=== PATIENT | male | born 1955 ===

== ENCOUNTER 2016-04-19 09:27 | Inpatient (IN) | payer MEDICARE ==
[~2016-04-19] VITALS: Ht 175.3 cm; Wt 58.4 kg
[~2016-04-19 09:27] MED LIST: DIOV40TA PO; GLUC10TA3 PO; METF-324 PO; MIRA0.5T PO; PLAV75TA PO; ZOCO80TA PO
[2016-04-19 09:28] VITALS: BP 134/79; PULSE 78; RESP 15; TEMP 97.6; O2SAT 97
[2016-04-19 10:31] VITALS: RESP 18; O2SAT 100
[2016-04-19] MEDS ORDERED: PIPERACIL-TAZO 4.5 GM PREMIX 100 ML IV STA (10:33)
[2016-04-19] MEDS ORDERED: VANCOMYCIN INJ 1,000 MG in SODIUM CHLOR 0.9% 250 ML INJ 250 ML IV STA (10:33)
--- NOTE | 2016-04-19 10:42 | PD ---
HPI Chief Complaint: Skin Problem Time Seen by Provider: 10:33 Travel History International Travel<30 days: No Contact w/Intl Traveler<30days: No Traveled to known affect area: No History of Present Illness HPI 61-year-old male with history of diabetes, noncompliant with diabetic meds, presents to the ER today for increased right foot pain, swelling at the ulcer, and redness going up his right leg. According to patient's , patient has had months history of foot ulcer on the right foot laterally and it started draining fluids and getting more red and tender over the last few weeks, redness streaking up the leg for the past 2 weeks, and he has had some fevers or last few days. He denies any abdominal pains, chest pains, shortness of breath, or any other symptoms. Modifying Factors: None Associated Signs & Symptoms: 7 out of 10 right foot pain, redness, streaking and swelling Risk Factors: Diabetic PFSH Past Medical History Arthritis: Yes Blood Disorders: No Heart Rhythm Problems: No Cancer: No Cardiovascular Problems: Yes High Cholesterol: Yes Chemotherapy: No Chest Pain: Yes Congestive Heart Failure: No Cerebrovascular Accident: Yes Coronary Artery Disease: Yes Diabetes: Yes Patient Takes Glucophage: No Diminished Hearing: No Endocrine: Yes Gastrointestinal Disorders: Yes GERD: No Glaucoma: No Genitourinary: Yes Headaches: Yes Hepatitis: No Hiatal Hernia: No Hypertension: Yes Immune Disorder: No Kidney Stones: Yes Musculoskeletal: Yes Neurologic: Yes Psychiatric: No Reproductive: No Respiratory: No Immunizations Current: No Migraines: No Myocardial Infarction: Yes Radiation Therapy: No Renal Failure: Yes Seizures: No Thyroid Disease: No Ulcer: No Past Surgical History Abdominal Surgery: No AICD: No Appendectomy: No Arteriovenous Shunt: No Cardiac Surgery: Yes (OPEN HEART SURGERY SEVERAL YEARS AGO) Cholecystectomy: No Coronary Artery Bypass Graft: Yes Ear Surgery: No Endocrine Surgery: No Eye Surgery: No Genitourinary Surgery: Yes ( 3 KIDNEY SURGERIES WITH R PARTIAL NE[PHORECTOMY L KIDNEY STONE) Gynecologic Surgery: No Insulin Pump: No Joint Replacement: No Oral Surgery: No Pacemaker: No Thoracic Surgery: Yes (R LUNG REMOVED) Other Surgery: Yes (3 BACK SURGERIES) Social History Alcohol Use: No Tobacco Use: Yes (3 CIG/DAY) Substance Use: Yes (THC daily, ) Allergies-Medications (Allergen,Severity, Reaction): Coded Allergies: No Known Allergies (Verified , 2/24/17) Reported Meds & Prescriptions Reported Meds & Active Scripts Active Reported Plavix (Clopidogrel Bisulfate) 75 Mg Tab 75 Mg PO DAILY Zocor (Simvastatin) 80 Mg Tab 80 Mg PO HS Mirapex (Pramipexole Dihydrochloride) 0.5 Mg Tab 0.5 Mg PO HS Metformin HCl ER (Metformin HCl) 1,000 Mg Tab 1,000 Mg PO BID Glipizide 10 Mg Tab 20 Mg PO BID Diovan (Valsartan) 40 Mg Tab 40 Mg PO DAILY Review of Systems Except as stated in HPI: all other systems reviewed are Neg Physical Exam Narrative GENERAL: Well-nourished, well-developed elderly white male patient in no acute distress. SKIN: Warm and dry. HEAD: Normocephalic. EYES: No scleral icterus. No injection or drainage. NECK: Supple, trachea midline. CARDIOVASCULAR: Regular rate and rhythm without murmurs, gallops, or rubs. RESPIRATORY: Breath sounds equal bilaterally. No accessory muscle use. GASTROINTESTINAL: Abdomen soft, non-tender, nondistended. MUSCULOSKELETAL: No cyanosis, or edema. BACK: Nontender without obvious deformity. No CVA tenderness. EXTREMITIES: No clubbing, cyanosis, or edema. No joint tenderness, effusion, or edema noted. There is a right lateral foot dark discolored diabetic foot ulcer with surrounding erythema, fluctuant, questionable underlying infection. There is notable erythema and streaking up the foot as well as up the calf. Neurovascularly intact. Data Data Last Documented VS Vital Signs Date Time Temp Pulse Resp B/P Pulse Ox O2 Delivery O2 Flow Rate FiO2 04/19/16 10:31 100 Room Air 04/19/16 10:31 83 18 04/19/16 09:28 97.6 134/79 Orders Complete Blood Count With Diff (04/19/16 10:26) Comprehensive Metabolic Panel (04/19/16 10:26) Lactic Acid Sepsis Protocol (04/19/16 10:26) Blood Culture (04/19/16 10:26) Blood Glucose (04/19/16 10:26) Ecg Monitoring (04/19/16 10:26) Iv Access Insert/Monitor (04/19/16 10:26) Oximetry (04/19/16 10:26) Oxygen Administration (04/19/16 10:26) Piperacil-Tazo 4.5 Gm Premix (Zosyn 4.5 (04/19/16 10:33) Vancomycin Inj (Vancomycin Inj) (04/19/16 10:33) Foot, Complete (Eum2uue) (04/19/16 10:33) Hydromorphone Pf Inj (Dilaudid Pf Inj) (04/19/16 10:45) Ondansetron Inj (Zofran Inj) (04/19/16 10:45) Sodium Chlor 0.9% 1000 Ml Inj (Ns 1000 M (04/19/16 10:45) Insulin Human Regular Inj (Novolin R Inj (04/19/16 12:45) Admit Order (Ed Use Only) (04/19/16 12:40) Labs Laboratory Tests Test 04/19/16 10:45 White Blood Count 12.6 TH/MM3 Red Blood Count 4.62 MIL/MM3 Hemoglobin 13.3 GM/DL Hematocrit 40.3 % Mean Corpuscular Volume 87.3 FL Mean Corpuscular Hemoglobin 28.9 PG Mean Corpuscular Hemoglobin 33.1 % Concent Red Cell Distribution Width 13.5 % Platelet Count 239 TH/MM3 Mean Platelet Volume 11.1 FL Neutrophils (%) (Auto) 75.1 % Lymphocytes (%) (Auto) 17.0 % Monocytes (%) (Auto) 7.1 % Eosinophils (%) (Auto) 0.4 % Basophils (%) (Auto) 0.4 % Neutrophils # (Auto) 9.4 TH/MM3 Lymphocytes # (Auto) 2.1 TH/MM3 Monocytes # (Auto) 0.9 TH/MM3 Eosinophils # (Auto) 0.1 TH/MM3 Basophils # (Auto) 0.1 TH/MM3 CBC Comment DIFF FINAL Differential Comment Sodium Level 134 MEQ/L Potassium Level 4.4 MEQ/L Chloride Level 95 MEQ/L Carbon Dioxide Level 29.3 MEQ/L Anion Gap 10 MEQ/L Blood Urea Nitrogen 11 MG/DL Creatinine 0.88 MG/DL Estimat Glomerular Filtration 88 ML/MIN Rate Random Glucose 540 MG/DL Lactic Acid Level 2.2 mmol/L Calcium Level 8.9 MG/DL Total Bilirubin 0.4 MG/DL Aspartate Amino Transf 17 U/L (AST/SGOT) Alanine Aminotransferase 22 U/L (ALT/SGPT) Alkaline Phosphatase 113 U/L Total Protein 7.8 GM/DL Albumin 3.4 GM/DL MDM Medical Decision Making Medical Screen Exam Complete: Yes Emergency Medical Condition: Yes Medical Record Reviewed: Yes Interpretation(s) Laboratory Tests Test 04/19/16 10:45 White Blood Count 12.6 TH/MM3 (4.0-11.0) Mean Platelet Volume 11.1 FL (7.0-11.0) Neutrophils (%) (Auto) 75.1 % (16.0-70.0) Neutrophils # (Auto) 9.4 TH/MM3 (1.8-7.7) Sodium Level 134 MEQ/L (136-145) Chloride Level 95 MEQ/L (98-107) Estimat Glomerular Filtration 88 ML/MIN (>89) Rate Random Glucose 540 MG/DL (74-106) Lactic Acid Level 2.2 mmol/L (0.4-2.0) Differential Diagnosis Diabetic foot ulcer, cellulitis, rule out osteomyelitis, rule out sepsis Narrative Course X-ray did not show any signs of osteomyelitis. Patient was given IV antibiotics after cultures are drawn for obvious cellulitis. His glucose is elevated as well and IV fluids and insulin had been given. At this point, case was discussed with Dr. Chen for admission. Diagnosis Primary Impression: Diabetic foot ulcer Additional Impression: Sepsis affecting skin Admitting Information Admitting Physician Requests: Admit Vinod Stuart MD Apr 19, 2016 10:42
[2016-04-19] MEDS ORDERED: HYDROmorphone HCL PF 1 MG/ML VIAL IV PUSH ONE ×2 (10:45→13:00)
[2016-04-19] MEDS ORDERED: ONDANSETRON HCL 4 MG/2 ML VIAL IV PUSH ONE (10:45)
[2016-04-19] MEDS ORDERED: SODIUM CHLOR 0.9% 1000 ML INJ 1,000 ML IV ONE (10:45)
[2016-04-19 11:01] LABS: AUTOMATED NEUTROPHIL # 9.4 TH/MM3 (1.8-7.7); BASOPHIL # 0.1 TH/MM3 (0-0.2); BASOPHIL % 0.4 % (0.0-2.0); EOSINOPHIL # 0.1 TH/MM3 (0-0.4); EOSINOPHIL % 0.4 % (0.0-4.0); HEMATOCRIT 40.3 % (39.0-51.0); HEMO FLAGS DIFF FINAL; LYMPHOCYTE # 2.1 TH/MM3 (1.0-4.8); MEAN CELL VOLUME 87.3 FL (80.0-100.0); MEAN CORPUSCULAR HEMOGLOBIN 28.9 PG (27.0-34.0); MEAN CORPUSCULAR HGB CONC 33.1 % (32.0-36.0); MONO % 7.1 % (0.0-8.0); NEUT % 75.1 % (16.0-70.0); PLATELET COUNT 239 TH/MM3 (150-450); RED BLOOD COUNT 4.62 MIL/MM3 (4.50-5.90); RED CELL DISTRIBUTION WIDTH 13.5 % (11.6-17.2); WHITE BLOOD COUNT 12.6 TH/MM3 (4.0-11.0)
--- NOTE | 2016-04-19 11:31 | RADRPT ---
EXAM DATE/TIME: 04/19/2016 10:56 [facility] COMPARISON: No previous studies available for comparison. INDICATION: Right foot pain due to wound on lateral side. No known injury. Evaluate for infection. MEDICAL HISTORY: Diabetes mellitus type II. SURGICAL HISTORY: Multiple surgeries per patient. ENCOUNTER: Initial ACUITY: 4 - 6 months PAIN SCORE: 9/10 LOCATION: Right lateral foot FINDINGS: There are degenerative changes across the forefoot. There is a soft tissue defect on the lateral kunal e of the foot without evidence for osteomyelitis. CONCLUSION: 1. Soft tissue defect lateral side of the foot. 2. Negative for osteomyelitis. Angel Carvajal MD FACR on April 19, 2016 at 11:08 Board Certified Radiologist. This report was verified electronically.
[2016-04-19 11:51] LABS: ALKALINE PHOSPHATASE 113 U/L (45-117); ALT (GPT) 22 U/L (12-78); ANION GAP 10 MEQ/L (5-15); AST (GOT) 17 U/L (15-37); BICARBONATE 29.3 MEQ/L (21.0-32.0); BLOOD UREA NITROGEN 11 MG/DL (7-18); CHLORIDE 95 MEQ/L (98-107); GLOMERULAR FILTRATION RATE 88 ML/MIN (>89); SODIUM (NA) 134 MEQ/L (136-145); TOTAL BILIRUBIN ADULT 0.4 MG/DL (0.2-1.0)
[2016-04-19 11:54] LABS: POTASSIUM 4.4 MEQ/L (3.5-5.1)
[2016-04-19] MEDS ORDERED: INSULIN HUMAN REGULAR 1,000 UNITS/10 ML VIAL IV PUSH ONE (12:45)
[2016-04-19 12:49] LABS: LACTIC ACID GHOST NOT REPORTABLE
[2016-04-19 12:53] VITALS: BP 131/70; PULSE 63; RESP 18; O2SAT 98
[2016-04-19] MEDS: SODIUM CHLOR 0.9% 1000 ML INJ 1,000 ML IV SCH (13:43)
[2016-04-19] MEDS ORDERED: BISACODYL 10 MG SUPP PR PRN (13:45)
[2016-04-19] MEDS ORDERED: GLUCAGON 1 MG/ML VIAL OTHER PRN (13:45)
[2016-04-19] MEDS ORDERED: ONDANSETRON HCL 4 MG/2 ML VIAL IVP PRN (13:45)
[2016-04-19] MEDS ORDERED: SODIUM CHLORIDE 0.9% FLUSH 5 ML FLUSH FLUSH PRN (13:45)
[2016-04-19] MEDS ORDERED: MAGNESIUM HYDROXIDE SUSP 30 ML CUP PO PRN (13:45)
[2016-04-19] MEDS ORDERED: PROCHLORPERAZINE 25 MG SUPP PR PRN (13:45)
[2016-04-19] MEDS ORDERED: DEXTROSE 50% IN WATER 50 ML VIAL(D50) IV PUSH PRN (13:45)
[2016-04-19] MEDS ORDERED: SENNOSIDES 8.6 MG TAB PO PRN (13:45)
[2016-04-19] MEDS ORDERED: ACETAMINOPHEN 325 MG TAB PO PRN (13:45)
[2016-04-19] MEDS ORDERED: VANCOMYCIN INJ 1,000 MG in SODIUM CHLOR 0.9% 250 ML INJ 250 ML IV SCH (14:00)
[2016-04-19] MEDS ORDERED: Vancomycin Consult Pharmacy 1 EA OTHER SCH (14:00)
[2016-04-19] MEDS: ENOXAPARIN SODIUM 40 MG/0.4 ML SYRINGE SQ SCH (15:00)
--- NOTE | 2016-04-19 15:28 | HHI.HP ---
[facility] Service [facility] Primary Care Physician Non-Staff Admission Diagnosis diabetic foot ulcer/cellulitis/sepsis Diagnoses: Chief Complaint: diabetic right foot wound getting worse more red, painful Travel History International Travel<30 Days: No Contact w/Intl Traveler <30 Da: No Traveled to Known Affected Are: No History of Present Illness 61-year-old male with history of diabetes, CAD with CAGB 2003, CVA, HLD noncompliant with any meds says he is taking only ASA 81 mg and he is not taking any other med for the past 4 years. Says he is following regularly with doctors at [facility]. He presented to the ER today for increased right foot pain, swelling at the ulcer, and redness going up his right leg x 7 days worsening for the past 2-3 days. Patient had an ulcer at the right side x > 3 months and says he has another ulcer for 1 week. According to patient's , patient has had months history of foot ulcer on the right foot laterally and it started draining fluids and getting more red and tender over the last few weeks, redness streaking up the leg for the past 2 weeks, and he has had some fevers or last few days. He denies any abdominal pains, chest pains, shortness of breath, or any other symptoms. Had chills yesterday. No fever. He is also reporting anxiety. 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 Past Surgical History quadruple bypass 2003 History back surgeries multiple -3 Right leg surgery and right hip surgery Reported Medications Reported Meds & Active Scripts Active No Active Prescriptions or Reported Medications Allergies: Coded Allergies: No Known Allergies (Verified , 04/19/16) Family History Parents with heart problems, hyperlipidemia, diabetes and hypertension Social History Used to smoke 2 packs an half, cut down to 5-7 cigarettes since 2003 after CABG Denies alcohol use or illicit drug Physical Exam Vital Signs Vital Signs Date Time Temp Pulse Resp B/P Pulse Ox O2 Delivery O2 Flow Rate FiO2 04/19/16 12:53 63 18 131/70 98 Room Air 04/19/16 10:31 100 Room Air 04/19/16 10:31 83 18 04/19/16 10:31 18 100 Room Air 04/19/16 09:28 97.6 78 15 134/79 97 Physical Exam GENERAL: This is a frail 61 yo male, well-nourished, well-developed patient, in no apparent distress. SKIN: Right foot with 2 ulcers laterally, edema , and erythema going up his right leg with streak like cord. HEAD: Atraumatic. Normocephalic. No temporal or scalp tenderness. EYES: Pupils equal round and reactive. Extraocular motions intact. No scleral icterus. No injection or drainage. ENT: Nose without bleeding, purulent drainage or septal hematoma. Throat without erythema, tonsillar hypertrophy or exudate. Uvula midline. Airway patent. NECK: Trachea midline. No JVD or lymphadenopathy. Supple, nontender, no meningeal signs. CARDIOVASCULAR: Regular rate and rhythm without murmurs, gallops, or rubs. RESPIRATORY: Clear to auscultation. Breath sounds equal bilaterally. No wheezes , rales, or rhonchi. GASTROINTESTINAL: Abdomen soft, non-tender, nondistended. No hepato-splenomegaly , or palpable masses. No guarding. MUSCULOSKELETAL: Right leg is shorter than left leg had multiple surgeries and has extensive hardware. Extremities without clubbing, cyanosis, or edema. No joint tenderness, effusion, or edema noted. No calf tenderness. Negative Homans sign bilaterally. NEUROLOGICAL: Awake and alert. Cranial nerves II through XII intact. Motor and sensory grossly within normal limits. Five out of 5 muscle strength in all muscle groups. Normal speech. Laboratory Laboratory Tests Test 04/19/16 04/19/16 10:45 13:47 White Blood Count 12.6 Red Blood Count 4.62 Hemoglobin 13.3 Hematocrit 40.3 Mean Corpuscular Volume 87.3 Mean Corpuscular Hemoglobin 28.9 Mean Corpuscular Hemoglobin 33.1 Concent Red Cell Distribution Width 13.5 Platelet Count 239 Mean Platelet Volume 11.1 Neutrophils (%) (Auto) 75.1 Lymphocytes (%) (Auto) 17.0 Monocytes (%) (Auto) 7.1 Eosinophils (%) (Auto) 0.4 Basophils (%) (Auto) 0.4 Neutrophils # (Auto) 9.4 Lymphocytes # (Auto) 2.1 Monocytes # (Auto) 0.9 Eosinophils # (Auto) 0.1 Basophils # (Auto) 0.1 CBC Comment DIFF FINAL Differential Comment Sodium Level 134 Potassium Level 4.4 Chloride Level 95 Carbon Dioxide Level 29.3 Anion Gap 10 Blood Urea Nitrogen 11 Creatinine 0.88 Estimat Glomerular Filtration 88 Rate Random Glucose 540 Lactic Acid Level 2.2 2.5 Calcium Level 8.9 Total Bilirubin 0.4 Aspartate Amino Transf 17 (AST/SGOT) Alanine Aminotransferase 22 (ALT/SGPT) Alkaline Phosphatase 113 Total Protein 7.8 Albumin 3.4 Date/Time Procedure Status Source Growth 04/19/16 10:45 Aerobic Blood Culture Received Blood Peripheral Pending 04/19/16 10:45 Anaerobic Blood Culture Received Blood Peripheral Pending Result Diagram: 04/19/16 1045 04/19/16 1045 Imaging Last Impressions Foot X-Ray 04/19/16 1033 Signed Impressions: Service Date/Time: Tuesday, April 19, 2016 10:56 - CONCLUSION: 1. Soft tissue defect lateral side of the foot. 2. Negative for osteomyelitis. 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 Patient came for evaluation of right foot infected diabetic wound. Right leg diabetic wound. Patient with leukocytosis and lactic acid elevated on admission. Doesn't meet sepsis criteria. Check lactic acid per protocol IVF Wound cx ordered and pending. Blood cx pending Start IV abx Vanco and zosyn Consult podiatry. Patient likely needs vasc surgeon for evaluation DM2 likely uncontrolled on admission his glucose of 500s. Check A1c. Received bolus insulin. Monitor BS. Start ISS, accuchecks. CAD s/p CABG 2--4. Patient is refusing any meds says she is not taking any meds for the past 4 years. Adviced continue BB, ACEI, ASA , statin HLD. Adviced continue statin. Check lipid panel. DVT ppx with lovenox Code Status full Discussed Condition With patient, nurse, family at bedside, ED physician Physician Certification 2 Midnight Certification Type: Admission for Inpatient Services Order for Inpatient Services The services are ordered in accordance with Medicare regulations or non- Medicare payer requirements, as applicable. In the case of services not specified as inpatient-only, they are appropriately provided as inpatient services in accordance with the 2-midnight benchmark. Estimated LOS (days): 3 days is the estimated time the patient will need to remain in the hospital, assuming treatment plan goals are met and no additional complications. Post-Hospital Plan: Not yet determined Sallie Chen MD Apr 19, 2016 15:27
[2016-04-19] MEDS ORDERED: NALOXONE HCL 0.4 MG/ML AMP IV PRN (15:30)
[2016-04-19 15:49] VITALS: BP 134/65; PULSE 63; RESP 18; O2SAT 98
[2016-04-19] MEDS ORDERED: LORazepam 0.5 MG TAB PO PRN (16:00)
[2016-04-19] MEDS ORDERED: oxyCODONE/ACETAMINOPHEN 5 MG/325 MG TAB PO PRN (16:00)
[2016-04-19 16:02] LABS: HEMOGLOBIN A1a 1.4 %; HEMOGLOBIN A1b 1.6 %; HEMOGLOBIN Ao 68.9 %; HEMOGLOBIN F 2.6 %; HEMOGLOBIN LA1C 5.1 %; HEMOGLOBIN P3 6.4 %
[2016-04-19 16:57] VITALS: BP 121/59; PULSE 66; RESP 18; O2SAT 100
[2016-04-19] MEDS: HYDROmorphone HCL PF 1 MG/ML VIAL IV PRN ×2 (17:00→20:12)
[2016-04-19] MEDS: INSULIN ASPART SUPPLEMENTAL SCALE SQ SCH ×2 (17:01→20:12)
[2016-04-19] MEDS: PIPERACIL-TAZO 4.5 GM PREMIX 100 ML IV SCH ×2 (17:01→22:32)
[2016-04-19 17:44] LABS: HDL CHOLESTEROL 61.2 MG/DL (40.0-60.0)
[2016-04-19] MEDS ORDERED: GADODIAMIDE PF 287 MG/ML 20 ML VIAL (for RAD MRI) IV ONE (19:15)
--- NOTE | 2016-04-19 19:53 | RADRPT ---
EXAM DATE/TIME: 04/19/2016 18:17 [facility] COMPARISON: FOOT RIGHT COMPLETE ([id number]), April 19, 2016, 10:56. INDICATIONS : Cellulitis CONTRAST: 10 cc Omniscan (gadodiamide) IV MEDICAL HISTORY : Diabetes mellitus type 2. Renal calculi. Prior fracture of right leg. SURGICAL HISTORY : CABG Discectomy, lumbar. Rods and pins in right leg. ENCOUNTER: Initial ACUITY: 3 months PAIN SCORE: 8/10 LOCATION: lateral side of foot by fifth digit TECHNIQUE: Multiplanar, multisequence MRI examination was performed without contrast and after the intravenous a dministration of gadolinium. FINDINGS: There is mid foot and forefoot soft tissue edema. Organized subcutaneous fluid seen lateral to the fi fth metatarsal head compatible with abscess, measures 6 x 9 x 19 mm in size. This has a broad base ag ainst the bone and also against the fifth metatarsophalangeal joint capsule but there is no evidence of septic arthropathy or osteomyelitis. Severe second and third hammertoe noted. There is dorsal dislocation and severe osteoarthritis of the third, less severe the second. There is reactive appearing marrow edema of the second and third meta carpal heads. There is mild talonavicular, calcaneocuboid and Lisfranc osteoarthritis. Moderate osteoarthritis seen at the ankle and subtalar joints. CONCLUSION: Focal subcutaneous abscess lateral to the fifth metatarsophalangeal joint. Otherwise, there is edema/ non-organized fluid of the right midfoot and forefoot compatible cellulitis. No evidence of osteomyel itis. Chronic degenerative changes as above. Óscar Diaz MD on April 19, 2016 at 19:46 Board Certified Radiologist. This report was verified electronically.
[2016-04-19 20:00] VITALS: BP_SYST 121; BP_SYST 137; BP_DIAS 62; BP_DIAS 66; PULSE 64; PULSE 70; RESP 16; RESP 18; TEMP 96.2; TEMP 96.5; O2SAT 100
[2016-04-19] MEDS: SODIUM CHLORIDE 0.9% FLUSH 5 ML FLUSH FLUSH SCH (20:12)
[2016-04-19] MEDS ORDERED: TEMAZEPAM 15 MG CAP PO PRN (21:00)
[2016-04-19] MEDS: ATORVASTATIN 80 MG TAB PO SCH (21:59)
[2016-04-19] MEDS: VANCOMYCIN 1,000 MG/NS 250 ML IV SCH ×2 (22:31)
[2016-04-19] MEDS: oxyCODONE/ACETAMINOPHEN 10 MG/325 MG TAB PO PRN (22:39)
[2016-04-20] VITALS: BP 115/58; PULSE 55; RESP 16; TEMP 98.7; O2SAT 98
[2016-04-20] MEDS: SODIUM CHLOR 0.9% 1000 ML INJ 1,000 ML IV SCH ×3 (00:51→23:48)
[2016-04-20] MEDS ORDERED: POVIDONE IODINE 10% SOLN 118 ML BOTTLE TOPICAL SCH (01:15)
[2016-04-20] MEDS ORDERED: LIDOCAINE HCL 1% 50 ML VIAL XX SCH (01:15)
[2016-04-20] MEDS: PIPERACIL-TAZO 4.5 GM PREMIX 100 ML IV SCH ×4 (05:12→23:51)
[2016-04-20] MEDS: oxyCODONE/ACETAMINOPHEN 10 MG/325 MG TAB PO PRN ×4 (05:18→23:46)
[2016-04-20] MEDS: INSULIN ASPART SUPPLEMENTAL SCALE SQ SCH ×4 (06:06→21:16)
[2016-04-20] MEDS: HYDROmorphone HCL PF 1 MG/ML VIAL IV PRN ×3 (07:01→21:17)
[2016-04-20 07:15] LABS: AUTOMATED NEUTROPHIL # 7.6 TH/MM3 (1.8-7.7); BASOPHIL % 0.4 % (0.0-2.0); EOSINOPHIL # 0.1 TH/MM3 (0-0.4); EOSINOPHIL % 1.1 % (0.0-4.0); HEMATOCRIT 37.5 % (39.0-51.0); HEMO FLAGS DIFF FINAL; LYMPHOCYTE # 2.7 TH/MM3 (1.0-4.8); MEAN CELL VOLUME 87.2 FL (80.0-100.0); MEAN CORPUSCULAR HEMOGLOBIN 28.7 PG (27.0-34.0); MONO % 8.1 % (0.0-8.0); NEUT % 66.4 % (16.0-70.0); PLATELET COUNT 192 TH/MM3 (150-450); RED CELL DISTRIBUTION WIDTH 13.2 % (11.6-17.2); WHITE BLOOD COUNT 11.4 TH/MM3 (4.0-11.0)
[2016-04-20 07:48] LABS: POTASSIUM 3.6 MEQ/L (3.5-5.1)
[2016-04-20 08:12] VITALS: BP 124/67; PULSE 69; RESP 18; TEMP 96.8; O2SAT 100
[2016-04-20 08:40] VITALS: O2SAT 99
[2016-04-20] MEDS ORDERED: VALSARTAN 40 MG TAB PO SCH (09:00)
[2016-04-20] MEDS: SODIUM CHLORIDE 0.9% FLUSH 5 ML FLUSH FLUSH SCH ×2 (09:00→21:16)
--- NOTE | 2016-04-20 11:04 | MB ---
cc: ALFONZO NEEWLL DPM DATE OF CONSULTATION: 04/20/2016, time of consult; 0900 DATE OF : 1955 REASON FOR CONSULTATION: 1. Right foot diabetic ulcer 2. Cellulitis. HISTORY OF PRESENT ILLNESS The patient is a 61-year-old male with a longstanding history of diabetes, coronary artery disease, HLD, CVA. [facility] is [facility] who has not been compliant with his medicine past 4 years. He does not take any medication for his blood sugar. He presented on 04/19/2014 with right leg, and foot pain, with swelling, redness and worsening over the past two to three days. He relates that he has had ulcer for about three months after working and rubbing shoe. He states that he has noticed streaking on the leg for about two weeks now. He denies any nausea, vomiting, fever, diarrhea, chills this morning at bedside. REVIEW OF SYSTEMS Per HPI. PAST MEDICAL HISTORY Per HPI. PAST SURGICAL HISTORY Coronary artery bypass graft times four 2003. Multiple back surgeries Right leg and hip surgeries. MEDICATIONS Per medical chart. PHYSICAL EXAMINATION Right foot with localized erythema on the dorsum of the foot and then on the right lateral leg as well. There is some pain on palpation to lateral aspect of the fifth metatarsal. There is a bullae, there is fluctuance. There is drainage. 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 DP and PT diminished. Protective sensation grossly diminished muscle strength intact. LABORATORY FINDINGS: WBC on 04/20/2016, 11.4, RBC of 4.30, H&H 12.3 and 37.5 respectively. RADIOLOGIC: Right foot x-ray carried out 04/19/2016 negative for [address]itis per Dr. Carvajal. Right foot MRI carried out 04/19/2016 with a fluid abscess lateral to the fifth metatarsal head. There is no evidence of osteomyelitis, evaluated on 2013. ASSESSMENT/PLAN 1. Diabetes. 2. Diabetic abscess right foot. The patient was consented for bedside right foot I&D. Time-out and appropriate documentation was carried out with nursing staff in the patient's room this morning. The right foot was prepped and an incision with a #15 blade was carried out into the abscess. The purulent drainage was cultured and sent to pathology for aerobic, anaerobic Gram stain, culture and sensitivity. The necrotic nonviable tissue was then debrided sharply using a #15 blade for excisional debridement. The chronic nonviable tissue was debrided with iris scissors. There was no probing down to bone the capsule was covered the joint was covered. The wound measured approximately 3 cm x 2 cm's after debridement. Dry sterile dressings were applied using Betadine, Adaptic, 4x4s and a light Renan wrap. The patient tolerated procedure completion. Right foot is stable at this point and time the patient related immediate improvement. After decompressing up the abscess. He is pending a arterial blood flow with ABIs. My plan for this patient is to continue IV antibiotics until resolution of the of cellulitis. After that he can be discharged home with p.o. antibiotics. He will continue daily wound care with Santyl 4x4s, Og and a light Renan wrap. The patient may weight bear with a postop shoe. And he will follow up with podiatry within a week of discharge. Alfonzo Newell DPM SR/lakshmi /10:02 AM /10:39 AM SAAD
[2016-04-20] MEDS: VANCOMYCIN 1,000 MG/NS 250 ML IV SCH ×4 (11:12→23:46)
[2016-04-20 13:05] VITALS: BP 112/69; PULSE 58; RESP 18; TEMP 98.6; O2SAT 100
[2016-04-20] MEDS: ENOXAPARIN SODIUM 40 MG/0.4 ML SYRINGE SQ SCH (14:54)
--- NOTE | 2016-04-20 16:16 | RADRPT ---
EXAM DATE/TIME: 04/20/2016 00:00 [facility] COMPARISON: No previous studies available for comparison. INDICATIONS : Diabetic Foot Ulcer, Cellulitis, Sepsis TECHNIQUE: Five-station segmental examination of the lower extremities was performed. Pulsed-cuff waveform tracings and pressures were recorded. Ankle-brachial indices and toe-brachial indices were calculated. PRESSURES (mmHg): Brachial (arm): Right IV SITE Left 126 Lower Thigh: Right 113 Left 119 Calf: Right 70 Left 55 Ankle: Right 58 Left 65 Toe: Right 0 Left 63 KRISSY: Right 0.46 Left 0.52 TBI: Right 0.00 Left 0.50 PULSED CUFF WAVEFORMS: Amplitude blunting of the below the knee and ankle waveforms bilaterally and the right toe wavef orm. CONCLUSION: Abnormal KRISSY and TBI bilaterally. Values are indicative of significant PAD bilaterally. Noe Berkowitz MD on April 20, 2016 at 16:12 Board Certified Radiologist. This report was verified electronically.
[2016-04-20 16:36] VITALS: BP 171/92; PULSE 96; RESP 18; TEMP 97.7; O2SAT 95
--- NOTE | 2016-04-20 17:26 | HHI.PR ---
Subjective Remarks In bed. Denies cp, sob, n/v/d/c. Pain is better controlled by meds. Eruthema improving. 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 No n/v/d/c. Objective Vitals Vital Signs Date Time Temp Pulse Resp B/P Pulse Ox O2 Delivery O2 Flow Rate FiO2 04/20/16 16:36 97.7 96 18 171/92 95 04/20/16 13:05 98.6 58 18 112/69 100 04/20/16 08:40 99 21 04/20/16 08:12 96.8 69 18 124/67 100 04/20/16 06:05 20 04/20/16 00:00 98.7 55 16 115/58 98 04/19/16 20:42 20 04/19/16 20:00 96.2 70 18 121/62 100 04/19/16 20:00 96.5 64 16 137/66 100 I/O 04/19/16 04/19/16 04/19/16 04/20/16 04/20/16 04/20/16 07:00 15:00 23:00 07:00 15:00 23:00 Intake Total 600 ml Output Total 500 ml Balance 100 ml Intake Oral 600 ml Output Urine Total 500 ml Result Diagram: 04/20/16 0637 04/20/16 0637 Imaging Last Impressions Foot X-Ray 04/19/16 1033 Signed Impressions: Service Date/Time: Tuesday, April 19, 2016 10:56 - CONCLUSION: 1. Soft tissue defect lateral side of the foot. 2. Negative for osteomyelitis. Angel Carvajal MD FACR Foot MRI 04/19/16 0000 Signed Impressions: Service Date/Time: Tuesday, April 19, 2016 18:17 - CONCLUSION: Focal subcutaneous abscess lateral to the fifth metatarsophalangeal joint. Otherwise , there is edema/non-organized fluid of the right midfoot and forefoot compatible cellulitis. No evidence of osteomyelitis. Chronic degenerative changes as above. Óscar Diaz MD Objective Remarks GENERAL: This is a frail 61 yo male, well-nourished, well-developed patient, in no apparent distress. SKIN: Right foot with dressing on c/d/di. HEAD: Atraumatic. Normocephalic. No temporal or scalp tenderness. EYES: Pupils equal round and reactive. Extraocular motions intact. No scleral icterus. No injection or drainage. ENT: Nose without bleeding, purulent drainage or septal hematoma. Throat without erythema, tonsillar hypertrophy or exudate. Uvula midline. Airway patent. NECK: Trachea midline. No JVD or lymphadenopathy. Supple, nontender, no meningeal signs. CARDIOVASCULAR: Regular rate and rhythm without murmurs, gallops, or rubs. RESPIRATORY: Clear to auscultation. Breath sounds equal bilaterally. No wheezes , rales, or rhonchi. GASTROINTESTINAL: Abdomen soft, non-tender, nondistended. No hepato-splenomegaly , or palpable masses. No guarding. MUSCULOSKELETAL: Right leg is shorter than left leg had multiple surgeries and has extensive hardware. Extremities without clubbing, cyanosis, or edema. No joint tenderness, effusion, or edema noted. No calf tenderness. Negative Homans sign bilaterally. NEUROLOGICAL: Awake and alert. Cranial nerves II through XII intact. Motor and sensory grossly within normal limits. Five out of 5 muscle strength in all muscle groups. Normal speech. 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 Patient came for evaluation of right foot infected diabetic wound. Right leg diabetic wound, cellulitis and abscess. Patient with leukocytosis and lactic acid elevated on admission. Doesn't meet sepsis criteria. Check lactic acid per protocol IVF Wound cx ordered and pending. Blood cx pending Start IV abx Grey Consult podiatry, appreciate recommendations. Had MRI, imaging reviewed by me. Focal subcutaneous abscess lateral to the fifth metatarsophalangeal joint. Otherwise, there is edema/non-organized fluid of the right midfoot and forefoot compatible cellulitis. No evidence of osteomyelitis. Chronic degenerative changes as above. DM2 likely uncontrolled on admission his glucose of 500s. Check A1c. Received bolus insulin. Monitor BS. Start ISS, accuchecks. CAD s/p CABG 2--4. Patient is refusing any meds says she is not taking any meds for the past 4 years. Adviced continue BB, ACEI, ASA , statin HLD. Adviced continue statin. Check lipid panel. DVT ppx with lovenox Code Status full Discussed Condition With patient, nurse Sallie Chen MD Apr 20, 2016 17:26
[2016-04-20] MEDS: ATORVASTATIN 80 MG TAB PO SCH (21:16)
[2016-04-20 22:15] VITALS: BP 127/72; PULSE 70; RESP 18; TEMP 97.6; O2SAT 100
[2016-04-20] MEDS ORDERED: PHARMACY ORDERED LAB XX ONE (22:45)
[2016-04-21] VITALS (7 sets, daily range): BP systolic 120–140; BP diastolic 65–75; PULSE 65–78; RESP 18–20; TEMP 96.3–98.5; O2SAT 98–100
[2016-04-21] MEDS: HYDROmorphone HCL PF 1 MG/ML VIAL IV PRN ×4 (02:01→21:40)
[2016-04-21] MEDS: SODIUM CHLOR 0.9% 1000 ML INJ 1,000 ML IV SCH ×2 (02:01→15:44)
[2016-04-21] MEDS: PIPERACIL-TAZO 4.5 GM PREMIX 100 ML IV SCH ×3 (04:29→17:31)
[2016-04-21] MEDS: oxyCODONE/ACETAMINOPHEN 10 MG/325 MG TAB PO PRN ×3 (06:11→18:10)
[2016-04-21] MEDS: INSULIN ASPART SUPPLEMENTAL SCALE SQ SCH ×4 (06:12→21:00)
[2016-04-21] MEDS: SODIUM CHLORIDE 0.9% FLUSH 5 ML FLUSH FLUSH SCH ×2 (08:03→21:39)
[2016-04-21] MEDS: COLLAGENASE OINT 30 GM TUBE TOP SCH (08:03)
--- NOTE | 2016-04-21 08:07 | HHI.PR ---
Subjective Remarks Patient in bed. Says pain is better controlled. Says erythema is improving. Dressing has been changed. Denies fever or chills. No n/v/d/c. Objective Vitals Vital Signs Date Time Temp Pulse Resp B/P Pulse Ox O2 Delivery O2 Flow Rate FiO2 04/21/16 07:54 96.3 69 18 124/75 99 04/21/16 07:11 20 04/21/16 06:00 98.1 65 19 120/66 99 04/21/16 02:31 20 04/21/16 00:50 97.9 69 19 125/65 100 04/20/16 22:15 97.6 70 18 127/72 100 04/20/16 16:36 97.7 96 18 171/92 95 04/20/16 13:05 98.6 58 18 112/69 100 04/20/16 08:40 99 21 04/20/16 08:12 96.8 69 18 124/67 100 I/O 04/20/16 04/20/16 04/20/16 04/21/16 04/21/16 04/21/16 06:59 14:59 22:59 06:59 14:59 22:59 Intake Total 1500 ml 1910 ml Output Total 1000 ml 600 ml Balance 500 ml 1310 ml Intake Oral 1500 ml 500 ml IV Total 1410 ml Output Urine Total 1000 ml 600 ml # Bowel Movements 0 0 Result Diagram: 04/20/16 0637 04/20/16 0637 Imaging Last Impressions Foot X-Ray 04/19/16 1033 Signed Impressions: Service Date/Time: Tuesday, April 19, 2016 10:56 - CONCLUSION: 1. Soft tissue defect lateral side of the foot. 2. Negative for osteomyelitis. Angel Carvajal MD FACR Foot MRI 04/19/16 0000 Signed Impressions: Service Date/Time: Tuesday, April 19, 2016 18:17 - CONCLUSION: Focal subcutaneous abscess lateral to the fifth metatarsophalangeal joint. Otherwise , there is edema/non-organized fluid of the right midfoot and forefoot compatible cellulitis. No evidence of osteomyelitis. Chronic degenerative changes as above. Óscar Diaz MD Objective Remarks GENERAL: This is a frail 61 yo male, well-nourished, well-developed patient, in no apparent distress. SKIN: Right foot with dressing on c/d/di. HEAD: Atraumatic. Normocephalic. No temporal or scalp tenderness. EYES: Pupils equal round and reactive. Extraocular motions intact. No scleral icterus. No injection or drainage. ENT: Nose without bleeding, purulent drainage or septal hematoma. Throat without erythema, tonsillar hypertrophy or exudate. Uvula midline. Airway patent. NECK: Trachea midline. No JVD or lymphadenopathy. Supple, nontender, no meningeal signs. CARDIOVASCULAR: Regular rate and rhythm without murmurs, gallops, or rubs. RESPIRATORY: Clear to auscultation. Breath sounds equal bilaterally. No wheezes , rales, or rhonchi. GASTROINTESTINAL: Abdomen soft, non-tender, nondistended. No hepato-splenomegaly , or palpable masses. No guarding. MUSCULOSKELETAL: Right leg is shorter than left leg had multiple surgeries and has extensive hardware. Extremities without clubbing, cyanosis, or edema. No joint tenderness, effusion, or edema noted. No calf tenderness. Negative Homans sign bilaterally. NEUROLOGICAL: Awake and alert. Cranial nerves II through XII intact. Motor and sensory grossly within normal limits. Five out of 5 muscle strength in all muscle groups. Normal speech. 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 Patient came for evaluation of right foot infected diabetic wound. Right leg diabetic wound, cellulitis and abscess. Patient with leukocytosis and lactic acid elevated on admission. Doesn't meet sepsis criteria. Check lactic acid per protocol IVF Wound cx ordered and pending. Blood cx pending Start IV abx Vanco and zosyn Consult podiatry, appreciate recommendations. Had MRI, imaging reviewed by me. Focal subcutaneous abscess lateral to the fifth metatarsophalangeal joint. Otherwise, there is edema/non-organized fluid of the right midfoot and forefoot compatible cellulitis. No evidence of osteomyelitis. Chronic degenerative changes as above. KRISSY arterial studies reviewed findings discussed with Dr Newell podiatry appreciate recommendations. Consult vascualr surgeon. DM2 likely uncontrolled on admission his glucose of 500s. Check A1c. Received bolus insulin. Monitor BS. Start ISS, accuchecks. CAD s/p CABG 2--4. Patient is refusing any meds says she is not taking any meds for the past 4 years. Adviced continue BB, ACEI, ASA , statin HLD. Adviced continue statin. Check lipid panel. DVT ppx with lovenox Code Status full Discussed Condition With patient, nurse, Dr Newell podiatry Sallie Chen MD Apr 21, 2016 08:06
[2016-04-21 08:37] LABS: AUTOMATED NEUTROPHIL # 5.6 TH/MM3 (1.8-7.7); BASOPHIL % 0.3 % (0.0-2.0); EOSINOPHIL # 0.1 TH/MM3 (0-0.4); EOSINOPHIL % 1.3 % (0.0-4.0); HEMATOCRIT 37.4 % (39.0-51.0); HEMO FLAGS DIFF FINAL; LYMPH % 29.4 % (9.0-44.0); LYMPHOCYTE # 2.7 TH/MM3 (1.0-4.8); MEAN CELL VOLUME 86.6 FL (80.0-100.0); MEAN CORPUSCULAR HEMOGLOBIN 29.2 PG (27.0-34.0); MEAN CORPUSCULAR HGB CONC 33.7 % (32.0-36.0); MONO % 8.9 % (0.0-8.0); NEUT % 60.1 % (16.0-70.0); PLATELET COUNT 207 TH/MM3 (150-450); RED BLOOD COUNT 4.32 MIL/MM3 (4.50-5.90); RED CELL DISTRIBUTION WIDTH 13.2 % (11.6-17.2); WHITE BLOOD COUNT 9.3 TH/MM3 (4.0-11.0)
--- NOTE | 2016-04-21 08:37 | PD.POD ---
Subjective Podiatric Problems Right foot wound PVD Pain scale used: 0-10 numeric scale Pain score: 2 Past Med/Surg/Social History Social History Smoking Status: Current Every Day Smoker Objective Vital Signs Vital Signs Date Time Temp Pulse Resp B/P Pulse Ox O2 Delivery O2 Flow Rate FiO2 04/21/16 07:54 96.3 69 18 124/75 99 04/21/16 07:11 20 04/21/16 06:00 98.1 65 19 120/66 99 04/21/16 02:31 20 04/21/16 00:50 97.9 69 19 125/65 100 04/20/16 22:15 97.6 70 18 127/72 100 04/20/16 16:36 97.7 96 18 171/92 95 04/20/16 13:05 98.6 58 18 112/69 100 04/20/16 08:40 99 21 Coded Allergies: No Known Allergies (Verified , 04/19/16) Other Results Last Impressions Foot X-Ray 04/19/16 1033 Signed Impressions: Service Date/Time: Tuesday, April 19, 2016 10:56 - CONCLUSION: 1. Soft tissue defect lateral side of the foot. 2. Negative for osteomyelitis. Angel Carvajal MD FACR Foot MRI 04/19/16 0000 Signed Impressions: Service Date/Time: Tuesday, April 19, 2016 18:17 - CONCLUSION: Focal subcutaneous abscess lateral to the fifth metatarsophalangeal joint. Otherwise , there is edema/non-organized fluid of the right midfoot and forefoot compatible cellulitis. No evidence of osteomyelitis. Chronic degenerative changes as above. Óscar Diaz MD Laboratory Tests Test 04/19/16 04/19/16 04/20/16 04/20/16 10:45 13:47 06:37 23:00 Hemoglobin A1c 14.1 % Total Bilirubin 0.4 MG/DL Aspartate Amino Transf 17 U/L (AST/SGOT) Alanine Aminotransferase 22 U/L (ALT/SGPT) Alkaline Phosphatase 113 U/L Total Protein 7.8 GM/DL Albumin 3.4 GM/DL Triglycerides Level 155 MG/DL Cholesterol Level 186 MG/DL LDL Cholesterol 94 MG/DL HDL Cholesterol 61.2 MG/DL Cholesterol/HDL Ratio 3.03 RATIO Lactic Acid Level 2.5 mmol/L White Blood Count 11.4 TH/MM3 Red Blood Count 4.30 MIL/MM3 Hemoglobin 12.3 GM/DL Hematocrit 37.5 % Mean Corpuscular Volume 87.2 FL Mean Corpuscular Hemoglobin 28.7 PG Mean Corpuscular Hemoglobin 33.0 % Concent Red Cell Distribution Width 13.2 % Platelet Count 192 TH/MM3 Mean Platelet Volume 10.3 FL Neutrophils (%) (Auto) 66.4 % Lymphocytes (%) (Auto) 24.0 % Monocytes (%) (Auto) 8.1 % Eosinophils (%) (Auto) 1.1 % Basophils (%) (Auto) 0.4 % Neutrophils # (Auto) 7.6 TH/MM3 Lymphocytes # (Auto) 2.7 TH/MM3 Monocytes # (Auto) 0.9 TH/MM3 Eosinophils # (Auto) 0.1 TH/MM3 Basophils # (Auto) 0.0 TH/MM3 CBC Comment DIFF FINAL Differential Comment Sodium Level 136 MEQ/L Potassium Level 3.6 MEQ/L Chloride Level 101 MEQ/L Carbon Dioxide Level 27.0 MEQ/L Anion Gap 8 MEQ/L Blood Urea Nitrogen 9 MG/DL Creatinine 0.58 MG/DL Estimat Glomerular Filtration 142 ML/MIN Rate Random Glucose 279 MG/DL Calcium Level 8.0 MG/DL Vancomycin Level Trough 16.5 MCG/ML Physical Exam Details RLE improved erythema. 0.5 cc of purulence expressed. Diminished pulses. No exposed bone or tendon and no malodor. ROM intact. Assessment & Plan Diagnosis: (1) Diabetic foot ulcer Status: Acute (2) PVD (peripheral vascular disease) Status: Acute A/P Continue with Santyl 0.05 % oint and DSD qd, right foot. Continue with IV abx. RX: Placed Vascular Consult. KRISSY diminished b/l. Discussed BS control with the patient. Dr Portillo begins coverage 04/22/16 Marisa Newell DPM Apr 21, 2016 08:37
[2016-04-21 09:16] LABS: BICARBONATE 30.8 MEQ/L (21.0-32.0); POTASSIUM 3.3 MEQ/L (3.5-5.1)
[2016-04-21] MEDS: VANCOMYCIN INJ 800 MG in SODIUM CHLOR 0.9% 250 ML INJ 250 ML IV SCH ×2 (12:14→22:44)
[2016-04-21] MEDS ORDERED: POTASSIUM CHLORIDE 20 MEQ CONTROLLED RELEASE TAB PO ONE (14:00)
[2016-04-21] MEDS: ENOXAPARIN SODIUM 40 MG/0.4 ML SYRINGE SQ SCH (14:08)
[2016-04-21] MEDS: CALCIUM CARBONATE 500 MG CHEWABLE TAB CHEW SCH ×2 (14:08→21:39)
--- NOTE | 2016-04-21 17:49 | PD.CAR.PN ---
CVT Progress Note Subjective/Hospital Course: Patient with severe peripheral vascular disease and the segmental Dopplers indicative of the same with KRISSY around 0.5 Patient seen Full consult dictated Thanks J Objective: Vital Signs Date Time Temp Pulse Resp B/P Pulse Ox O2 Delivery O2 Flow Rate FiO2 04/21/16 16:00 96.9 68 18 124/68 99 04/21/16 12:15 96.3 68 18 129/66 98 04/21/16 10:43 98 21 04/21/16 07:54 96.3 69 18 124/75 99 04/21/16 07:11 20 04/21/16 06:00 98.1 65 19 120/66 99 04/21/16 02:31 20 04/21/16 00:50 97.9 69 19 125/65 100 04/20/16 22:15 97.6 70 18 127/72 100 Labs: Laboratory Tests Test 04/21/16 04/21/16 07:48 16:27 White Blood Count 9.3 TH/MM3 (4.0-11.0) Red Blood Count 4.32 MIL/MM3 (4.50-5.90) Hemoglobin 12.6 GM/DL (13.0-17.0) Hematocrit 37.4 % (39.0-51.0) Mean Corpuscular Volume 86.6 FL (80.0-100.0) Mean Corpuscular Hemoglobin 29.2 PG (27.0-34.0) Mean Corpuscular Hemoglobin 33.7 % Concent (32.0-36.0) Red Cell Distribution Width 13.2 % (11.6-17.2) Platelet Count 207 TH/MM3 (150-450) Mean Platelet Volume 10.5 FL (7.0-11.0) Neutrophils (%) (Auto) 60.1 % (16.0-70.0) Lymphocytes (%) (Auto) 29.4 % (9.0-44.0) Monocytes (%) (Auto) 8.9 % (0.0-8.0) Eosinophils (%) (Auto) 1.3 % (0.0-4.0) Basophils (%) (Auto) 0.3 % (0.0-2.0) Neutrophils # (Auto) 5.6 TH/MM3 (1.8-7.7) Lymphocytes # (Auto) 2.7 TH/MM3 (1.0-4.8) Monocytes # (Auto) 0.8 TH/MM3 (0-0.9) Eosinophils # (Auto) 0.1 TH/MM3 (0-0.4) Basophils # (Auto) 0.0 TH/MM3 (0-0.2) CBC Comment DIFF FINAL Differential Comment Sodium Level 136 MEQ/L (136-145) Potassium Level 3.3 MEQ/L (3.5-5.1) Chloride Level 99 MEQ/L (98-107) Carbon Dioxide Level 30.8 MEQ/L (21.0-32.0) Anion Gap 6 MEQ/L (5-15) Blood Urea Nitrogen 7 MG/DL (7-18) Creatinine 0.57 MG/DL (0.60-1.30) Estimat Glomerular Filtration 145 ML/MIN Rate (>89) Random Glucose 143 MG/DL (74-106) Calcium Level 7.9 MG/DL (8.5-10.1) Lactic Acid Level 1.4 mmol/L (0.4-2.0) Result Diagram: 04/21/16 0748 04/21/16 0748 Prashanth James MD Apr 21, 2016 17:49
[2016-04-21] MEDS ORDERED: IOHEXOL 350 MG/ML 10 ML VIAL (for RAD DIAG) IV ONE (19:39)
[2016-04-21] MEDS: ATORVASTATIN 80 MG TAB PO SCH (21:39)
[2016-04-22] VITALS: BP 156/79; PULSE 69; RESP 20; TEMP 97.2; O2SAT 100
[2016-04-22] MEDS: PIPERACIL-TAZO 4.5 GM PREMIX 100 ML IV SCH ×3 (00:20→12:28)
[2016-04-22] MEDS: SODIUM CHLOR 0.9% 1000 ML INJ 1,000 ML IV SCH ×2 (01:43→12:28)
[2016-04-22 06:02] VITALS: BP 115/63; PULSE 80; RESP 20; TEMP 98.4; O2SAT 99
[2016-04-22] MEDS: INSULIN ASPART SUPPLEMENTAL SCALE SQ SCH ×2 (06:45→12:27)
[2016-04-22 08:00] VITALS: BP 136/71; PULSE 75; RESP 18; TEMP 98.9; O2SAT 99
[2016-04-22] MEDS: SODIUM CHLORIDE 0.9% FLUSH 5 ML FLUSH FLUSH SCH (09:00)
[2016-04-22] MEDS: oxyCODONE/ACETAMINOPHEN 10 MG/325 MG TAB PO PRN (09:18)
[2016-04-22] MEDS: CALCIUM CARBONATE 500 MG CHEWABLE TAB CHEW SCH (09:18)
[2016-04-22] MEDS: HYDROmorphone HCL PF 1 MG/ML VIAL IV PRN ×2 (10:11→15:00)
[2016-04-22 12:00] VITALS: BP 121/67; PULSE 77; RESP 18; TEMP 97.7; O2SAT 100
--- NOTE | 2016-04-22 12:00 | RADRPT ---
EXAM DATE/TIME: 04/21/2016 19:25 [facility] COMPARISON: No previous studies available for comparison. INDICATIONS : Evaluate for ischemia. Right foot pain. IV CONTRAST: 100 cc Omnipaque 350 (iohexol) IV RADIATION DOSE: 1.79 CTDIvol (mGy) MEDICAL HISTORY : Stroke. Hypertension. diabetes, renal failure SURGICAL HISTORY : right leg orthopedic surgery ENCOUNTER: Initial ACUITY: 1 day PAIN SCALE: 7/10 LOCATION: Right leg TECHNIQUE: Volumetric scanning was performed using a multi-row detector CT scanner. The data was post processed with a variety of visualization algorithms including full volume maximum intensity projection, multi -planar sliding thin slab reformation, curved planar reformation, and surface rendering techniques. Using automated exposure control and adjustment of the mA and/or kV according to patient size, radiat ion dose was kept as low as reasonably achievable to obtain optimal diagnostic quality images. FINDINGS: Abdominal aorta: The celiac and SMA origins are widely patent. There is a small accessory renal artery on the right. B oth the main and the excess are widely patent. There are 2 equal sized renal arteries on the left. Jose Juan th are widely patent. The MARVIN is patent. The infrarenal aorta is heavily diseased but adequate in david iber. Pelvis: The common iliac, internal iliac and external iliac circulation is diseased but adequate in caliber. Right leg: The common femoral is heavily diseased but adequate in caliber. The profunda femoral is patent. The s uperficial femoral occludes at its origin. There is eventual reconstitution of a heavily diseased sup erficial femoral below the adductor hiatus. The popliteal is quite small in size and diseased as well . Distally, there is 2 vessel runoff via the posterior tibial and peroneal. Left leg: The left common femoral is diseased but patent. The profunda femoral is patent. The superficial femor al occludes just distal to its origin. There is reconstitution of the distal SFA below the adductor h iatus. The reconstituted segment of superficial femoral and the popliteal artery disease but patent. Distally, there is 2 vessel runoff via the posterior tibial and peroneal. CT source data: The solid organs of the abdomen are intact. There is no retroperitoneal lymphadenopathy. No free air or free fluid is seen. The visualized loops of small and large bowel are unremarkable. Note is made o f a small right inguinal hernia. CONCLUSION: 1. Diseased but adequate in flow down to the level of the groin bilaterally. 2. 3. Right le. Complete occlusion of the superficial femoral with reconstitution distally. The reconstituted segm ent of distal SFA and popliteal are heavily diseased. Below the knee, there is advanced small vessel disease with two-vessel runoff. 5. 6. Left le. Occlusion of the superficial femoral with reconstitution distally. The reconstituted segment of gross perficial femoral and popliteal are heavily diseased. There is 2 vessel runoff to the foot. Andrés Cravajal MD on April 22, 2016 at 11:52 Board Certified Radiologist. This report was verified electronically.
[2016-04-22] MEDS: VANCOMYCIN INJ 800 MG in SODIUM CHLOR 0.9% 250 ML INJ 250 ML IV SCH (13:16)
--- NOTE | 2016-04-22 14:47 | HHI.PR ---
Subjective Remarks In bed, says she has pain in his left leg, failry controlled by emds. No fever or chills overnight. No n/v/d/c. Objective Vitals Vital Signs Date Time Temp Pulse Resp B/P Pulse Ox O2 Delivery O2 Flow Rate FiO2 04/22/16 08:00 98.9 75 18 136/71 99 04/22/16 06:02 98.4 80 20 115/63 99 04/22/16 00:00 97.2 69 20 156/79 100 04/21/16 20:00 98.5 78 20 140/72 98 04/21/16 16:00 96.9 68 18 124/68 99 I/O 04/21/16 04/21/16 04/21/16 04/22/16 04/22/16 04/22/16 07:00 15:00 23:00 07:00 15:00 23:00 Intake Total 1910 ml 480 ml 480 ml 1650 ml Output Total 600 ml 300 ml 600 ml 450 ml Balance 1310 ml 180 ml -120 ml 1200 ml Intake Oral 500 ml 480 ml 480 ml IV Total 1410 ml 1650 ml Output Urine Total 600 ml 300 ml 600 ml 450 ml # Voids 1 # Bowel Movements 0 0 0 Result Diagram: 04/21/16 0748 04/21/16 0748 Imaging Last Impressions Aorta w/Runoff CTA 04/21/16 0000 Signed Impressions: Service Date/Time: Thursday, April 21, 2016 19:25 - CONCLUSION: 1. Diseased but adequate in flow down to the level of the groin bilaterally. 2. 3. Right le. Complete occlusion of the superficial femoral with reconstitution distally. The reconstituted segment of distal SFA and popliteal are heavily diseased. Below the knee, there is advanced small vessel disease with two- vessel runoff. 5. 6. Left le. Occlusion of the superficial femoral with reconstitution distally. The reconstituted segment of superficial femoral and popliteal are heavily diseased. There is 2 vessel runoff to the foot. Andrés Carvajal MD Foot X-Ray 04/19/16 1033 Signed Impressions: Service Date/Time: Tuesday, April 19, 2016 10:56 - CONCLUSION: 1. Soft tissue defect lateral side of the foot. 2. Negative for osteomyelitis. Angel Carvajal MD FACR Foot MRI 04/19/16 0000 Signed Impressions: Service Date/Time: Tuesday, April 19, 2016 18:17 - CONCLUSION: Focal subcutaneous abscess lateral to the fifth metatarsophalangeal joint. Otherwise , there is edema/non-organized fluid of the right midfoot and forefoot compatible cellulitis. No evidence of osteomyelitis. Chronic degenerative changes as above. Óscar Diaz MD Objective Remarks GENERAL: This is a frail 61 yo male, well-nourished, well-developed patient, in no apparent distress. SKIN: Right foot with dressing on c/d/di. HEAD: Atraumatic. Normocephalic. No temporal or scalp tenderness. EYES: Pupils equal round and reactive. Extraocular motions intact. No scleral icterus. No injection or drainage. ENT: Nose without bleeding, purulent drainage or septal hematoma. Throat without erythema, tonsillar hypertrophy or exudate. Uvula midline. Airway patent. NECK: Trachea midline. No JVD or lymphadenopathy. Supple, nontender, no meningeal signs. CARDIOVASCULAR: Regular rate and rhythm without murmurs, gallops, or rubs. RESPIRATORY: Clear to auscultation. Breath sounds equal bilaterally. No wheezes , rales, or rhonchi. GASTROINTESTINAL: Abdomen soft, non-tender, nondistended. No hepato-splenomegaly , or palpable masses. No guarding. MUSCULOSKELETAL: Right leg is shorter than left leg had multiple surgeries and has extensive hardware. Extremities without clubbing, cyanosis, or edema. No joint tenderness, effusion, or edema noted. No calf tenderness. Negative Homans sign bilaterally. NEUROLOGICAL: Awake and alert. Cranial nerves II through XII intact. Motor and sensory grossly within normal limits. Five out of 5 muscle strength in all muscle groups. Normal speech. 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 Patient came for evaluation of right foot infected diabetic wound. Right leg diabetic wound, cellulitis and abscess. Patient with leukocytosis and lactic acid elevated on admission. Doesn't meet sepsis criteria. Check lactic acid per protocol IVF Wound cx ordered and pending. Blood cx pending Start IV abx Vanco and zosyn Consult podiatry, appreciate recommendations. Had MRI, imaging reviewed by me. Focal subcutaneous abscess lateral to the fifth metatarsophalangeal joint. Otherwise, there is edema/non-organized fluid of the right midfoot and forefoot compatible cellulitis. No evidence of osteomyelitis. Chronic degenerative changes as above. KRISSY arterial studies reviewed findings discussed with Dr Newell podiatry appreciate recommendations. Consult vascualr surgeon. Sen by Dr James appreciate recommendations. Had CtA Ao run off. Vasc surgery following, appreciate recommendations. DM2, uncontrolled on admission his glucose of 500s and A1c is 14.1 Received bolus insulin. Monitor BS. Start ISS, accuchecks. CAD s/p CABG 2--4. Patient is refusing any meds says she is not taking any meds for the past 4 years. Adviced continue BB, ACEI, ASA , statin HLD. Adviced continue statin as OP. Lipid panel reviewed, continue statin. . DVT ppx with lovenox Code Status full Discussed Condition With patient, nurse, family Sallie Chen MD Apr 22, 2016 14:47
[2016-04-22] MEDS: COLLAGENASE OINT 30 GM TUBE TOP SCH (15:07)
--- NOTE | 2016-04-22 17:31 | PD.CAR.PN ---
CVT Progress Note Subjective/Hospital Course: Patient with severe peripheral vascular disease and the segmental Dopplers indicative of the same with KRISSY around 0.5 Patient seen Full consult dictated Thanks glenis 04/22/2016 I have reviewed the CTA. It reveals good inflow with occlusion of both superficial femoral arteries and reconstitution at the popliteal level of small vessels with posterior tibial runoffs This is critical ischemia and if untreated patient will end up losing his right leg in the long run for he will develop osteomyelitis and necrosis Foot ulcers in diabetic disease and considered limb threatening ischemia stigmata and require vascular reconstruction if possible I have discussed this at length with the patient and I recommenced femoral- popliteal bypass on the right as well as compliance with medications Patient states that he doesn't need to any medicines and doesn't need any surgery and he knows best how to treat this problem Therefore I'll sign off on patient's care Thanks Glenis Objective: Vital Signs Date Time Temp Pulse Resp B/P Pulse Ox O2 Delivery O2 Flow Rate FiO2 04/22/16 12:00 97.7 77 18 121/67 100 04/22/16 08:00 98.9 75 18 136/71 99 04/22/16 06:02 98.4 80 20 115/63 99 04/22/16 00:00 97.2 69 20 156/79 100 04/21/16 20:00 98.5 78 20 140/72 98 Result Diagram: 04/21/16 0748 04/21/16 0748 Prashanth James MD Apr 22, 2016 17:31
--- NOTE | 2016-04-22 18:12 | HHI.DS ---
Discharge Summary Admission Date Apr 19, 2016 at 12:42 Discharge Date: Apr 22, 2016 Admitting Diagnosis diabetic foot ulcer/cellulitis/sepsis (1) Sepsis affecting skin ICD Code: L02.91 Diagnosis: Principal (2) PVD (peripheral vascular disease) ICD Code: I73.9 Diagnosis: Principal (3) Diabetic foot ulcer ICD Code: E11.621 (4) Uncontrolled diabetes mellitus ICD Code: E11.65 Diagnosis: Principal (5) Hyperlipidemia ICD Code: E78.5 Diagnosis: Secondary (6) CAD (coronary artery disease) ICD Code: I25.10 Diagnosis: Secondary Procedures I&D debridement of right foot wound abscess by podiatry Brief History - From Admission 61-year-old male with history of diabetes, CAD with CAGB 2003, CVA, HLD noncompliant with any meds says he is taking only ASA 81 mg and he is not taking any other med for the past 4 years. Says he is following regularly with doctors at [facility]. He presented to the ER today for increased right foot pain, swelling at the ulcer, and redness going up his right leg x 7 days worsening for the past 2-3 days. Patient had an ulcer at the right side x > 3 months and says he has another ulcer for 1 week. According to patient's , patient has had months history of foot ulcer on the right foot laterally and it started draining fluids and getting more red and tender over the last few weeks, redness streaking up the leg for the past 2 weeks, and he has had some fevers or last few days. He denies any abdominal pains, chest pains, shortness of breath, or any other symptoms. Had chills yesterday. No fever. He is also reporting anxiety. CBC/BMP: 04/21/16 0748 04/21/16 0748 Significant Findings Laboratory Tests Test 04/20/16 04/20/16 04/21/16 06:37 23:00 07:48 White Blood Count 11.4 TH/MM3 (4.0-11.0) Red Blood Count 4.30 MIL/MM3 4.32 MIL/MM3 (4.50-5.90) (4.50-5.90) Hemoglobin 12.3 GM/DL 12.6 GM/DL (13.0-17.0) (13.0-17.0) Hematocrit 37.5 % 37.4 % (39.0-51.0) (39.0-51.0) Monocytes (%) (Auto) 8.1 % (0.0-8.0) 8.9 % (0.0-8.0) Creatinine 0.58 MG/DL 0.57 MG/DL (0.60-1.30) (0.60-1.30) Random Glucose 279 MG/DL 143 MG/DL (74-106) (74-106) Calcium Level 8.0 MG/DL 7.9 MG/DL (8.5-10.1) (8.5-10.1) Vancomycin Level Trough 16.5 MCG/ML (5.0-10.0) Potassium Level 3.3 MEQ/L (3.5-5.1) Imaging Last Impressions Aorta w/Runoff CTA 04/21/16 0000 Signed Impressions: Service Date/Time: Thursday, April 21, 2016 19:25 - CONCLUSION: 1. Diseased but adequate in flow down to the level of the groin bilaterally. 2. 3. Right le. Complete occlusion of the superficial femoral with reconstitution distally. The reconstituted segment of distal SFA and popliteal are heavily diseased. Below the knee, there is advanced small vessel disease with two- vessel runoff. 5. 6. Left le. Occlusion of the superficial femoral with reconstitution distally. The reconstituted segment of superficial femoral and popliteal are heavily diseased. There is 2 vessel runoff to the foot. Andrés Carvajal MD Foot X-Ray 04/19/16 1033 Signed Impressions: Service Date/Time: Tuesday, April 19, 2016 10:56 - CONCLUSION: 1. Soft tissue defect lateral side of the foot. 2. Negative for osteomyelitis. Angel Carvajal MD FACR Foot MRI 04/19/16 0000 Signed Impressions: Service Date/Time: Tuesday, April 19, 2016 18:17 - CONCLUSION: Focal subcutaneous abscess lateral to the fifth metatarsophalangeal joint. Otherwise , there is edema/non-organized fluid of the right midfoot and forefoot compatible cellulitis. No evidence of osteomyelitis. Chronic degenerative changes as above. Óscar Diaz MD PE at Discharge GENERAL: This is a frail 61 yo male, well-nourished, well-developed patient, in no apparent distress. SKIN: Right foot with dressing on c/d/di. HEAD: Atraumatic. Normocephalic. No temporal or scalp tenderness. EYES: Pupils equal round and reactive. Extraocular motions intact. No scleral icterus. No injection or drainage. ENT: Nose without bleeding, purulent drainage or septal hematoma. Throat without erythema, tonsillar hypertrophy or exudate. Uvula midline. Airway patent. NECK: Trachea midline. No JVD or lymphadenopathy. Supple, nontender, no meningeal signs. CARDIOVASCULAR: Regular rate and rhythm without murmurs, gallops, or rubs. RESPIRATORY: Clear to auscultation. Breath sounds equal bilaterally. No wheezes , rales, or rhonchi. GASTROINTESTINAL: Abdomen soft, non-tender, nondistended. No hepato-splenomegaly , or palpable masses. No guarding. MUSCULOSKELETAL: Right leg is shorter than left leg had multiple surgeries and has extensive hardware. Extremities without clubbing, cyanosis, or edema. No joint tenderness, effusion, or edema noted. No calf tenderness. Negative Homans sign bilaterally. NEUROLOGICAL: Awake and alert. Cranial nerves II through XII intact. Motor and sensory grossly within normal limits. Five out of 5 muscle strength in all muscle groups. Normal speech. 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 Patient came for evaluation of right foot infected diabetic wound. Right leg diabetic wound, cellulitis and abscess. Patient with leukocytosis and lactic acid elevated on admission. Doesn't meet sepsis criteria. Check lactic acid per protocol IVF Wound cx ordered and pending. Blood cx pending Start IV abx Vanco and zosyn Consult podiatry, appreciate recommendations. Had MRI, imaging reviewed by me. Focal subcutaneous abscess lateral to the fifth metatarsophalangeal joint. Otherwise, there is edema/non-organized fluid of the right midfoot and forefoot compatible cellulitis. No evidence of osteomyelitis. Chronic degenerative changes as above. KRISSY arterial studies reviewed findings discussed with Dr Newell podiatry appreciate recommendations. Consult vascualr surgeon. Sen by Dr James appreciate recommendations. Had CtA Ao run off. Vasc surgery following, appreciate recommendations. DM2, uncontrolled on admission his glucose of 500s and A1c is 14.1 Received bolus insulin. Monitor BS. Start ISS, accuchecks. CAD s/p CABG 2--4. Patient is refusing any meds says she is not taking any meds for the past 4 years. Adviced continue BB, ACEI, ASA , statin HLD. Adviced continue statin as OP. Lipid panel reviewed, continue statin. . DVT ppx with lovenox Code Status full Discussed Condition With patient, nurse, family Patient left AMA 04/22/16 Pt Condition on Discharge: Stable Discharge Disposition: Discharge Home (left AMA) Discharge Time: <= 30 minutes Discharge Instructions DIET: Follow Instructions for: Heart Healthy Diet, Diabetic Diet Activities you can perform: Regular-No Restrictions Sallie Chen MD Apr 22, 2016 18:12
--- NOTE | 2016-04-23 05:33 | MB ---
cc: PRASHANTH HAWTHORNE MD DATE OF CONSULTATION 04/21/[address] Hawthorne, Vascular Surgery REASON FOR CONSULTATION Coronary artery disease, hypertension, diabetes mellitus, ulcer of the right foot, peripheral vascular disease. HISTORY OF PRESENT DISEASE This 61-year-old male with history of diabetes, cardiovascular disease and hyperlipidemia is noncompliant with any medications or care. He presents to the ER with increased pain in the right foot, swelling and ulcer on the right foot, the redness extending all the way up to the knee with severe cellulitis. He had this ulcer for about 3 months and now a second ulcer has appeared. They noted drainage of fluid and hence the presentation. I was consulted to see the patient for his vascular problems. PAST MEDICAL HISTORY 1. Diabetes mellitus. 2. Coronary artery disease. 3. Hypertension. 4. Hyperlipidemia. 5. CVA with blindness in the right eye after stroke. SURGICAL HISTORY 1. Coronary artery bypass surgery in 2003. 2. Multiple back surgeries. 3. Right hip surgery. MEDICATIONS Can be found on the chart, however, the patient does not take them. SOCIAL HISTORY Does not drink; however, smokes two packs of cigarettes a day and says he will not stop. PHYSICAL EXAMINATION GENERAL: A 61-year-old male in no acute distress, fairly thin. HEENT: Normocephalic. No trauma to the head. Pupils equally reactive. Extraocular muscles intact. NECK: Supple. Bilateral carotid pulses. No bruits. CHEST: Decreased breath sounds consistent with moderate degree of COPD, loss of chest wall musculature. HEART: Regular rhythm. ABDOMEN: Soft. Active bowel sounds. No rebound, no guarding, no masses. EXTREMITIES: The patient has palpable femoral pulses. Weak dopplerable popliteal pulses bilateral and posterior tibial pulses bilateral. No dorsalis pedis pulses on either leg. The right foot reveals two ulcers with some drainage. Sensation is decreased in both feet. NEUROLOGICALLY: Grossly the patient is intact except for diabetic neuropathy. ASSESSMENT AND PLAN I have found reviewed diagnostic and laboratory procedures. This gentleman has severe peripheral vascular disease now manifested with a diabetic foot ulcer. CTA with runoff reveals pretty good inflow and then occlusion of both superficial femoral arteries outflow. The posterior tibial artery with occlusion of an anterior tibial artery, right more than left. At this point it is my recommendation that the patient be considered for a femoral-popliteal bypass on the right side with either graft or an in situ vein. Considering the small size of the vessels and the fact that he has some veins in the leg that could be still used, probably an in situ bypass would be possible or at least a reverse vein graft would also be an adequate approach. If the patient does not have any surgery, I do not believe that ulcers in his foot will heal and I believe this is going to progressed to larger ulcers, osteomyelitis and eventual leg loss. I have explained this to the patient in detail and he states that he will not take any medication and does not need any surgery, that this is a local problem, he has been treating it before and refuses consideration of surgery. Therefore I will sign off from the patient's care. Thank you much for the referral. Prashanth HERNDON/SSB /5:22 PM /5:17 AM
[2016-04-23] MEDS ORDERED: PHARMACY ORDERED LAB XX ONE (10:45)
== END 2016-04-22 16:37 | disposition left against medical advice (07) | DRG 623 ==
LOC: NEPC 09:27 → NEDA 12:42 → NEDH 17:35 → N05B 19:08
PROVIDERS: ADMIT Hospitalist; ATTEND Hospitalist
PROC: 0HBMXZZ Excision of Right Foot Skin, External Approach (ICD-10-PCS; principal; 2016-04-20)
DX: E11.621 Type 2 diabetes mellitus with foot ulcer (principal); L02.611 Cutaneous abscess of right foot; E11.51 Type 2 diabetes mellitus with diabetic peripheral angiopathy without gangrene; E11.65 Type 2 diabetes mellitus with hyperglycemia; Z91.19 Patient's noncompliance with other medical treatment and regimen; I10 Essential (primary) hypertension; I25.10 Atherosclerotic heart disease of native coronary artery without angina pectoris; Z95.1 Presence of aortocoronary bypass graft; I69.398 Other sequelae of cerebral infarction; H54.41 Blindness, right eye, normal vision left eye; F17.210 Nicotine dependence, cigarettes, uncomplicated; F12.90 Cannabis use, unspecified, uncomplicated; E78.5 Hyperlipidemia, unspecified; Z79.82 Long term (current) use of aspirin
CPT/HCPCS: 73630; 73720; 75635; 76937; 80048; 80053; 80061; 80202; 82948; 83036; 83605; 85025; 86403; 87040; 87070; 87147; 87186; 87205; 93923; 96374; 96375; A9579; J1170; J1650; J1815; J2405; J2543; J3370; J7030; J7050; L3260; Q9967